=== PATIENT | male | born 1990 | race Hispanic/Latino ===

== ENCOUNTER 2019-03-07 17:45 | Emergency (ER) | payer SELFPAY ==
[2019-03-07] MEDS ORDERED: Colchicine 0.6 MG TAB ONE (18:00)
== END 2019-03-07 18:10 | disposition home or self-care (01) ==
LOC: ERS 17:45
DX: M10.9 Gout, unspecified (principal); E78.00 Pure hypercholesterolemia, unspecified; F17.200 Nicotine dependence, unspecified, uncomplicated
CPT/HCPCS: 99283

== ENCOUNTER 2019-03-18 21:44 | Emergency (ER) | payer SELFPAY ==
[2019-03-18] MEDS ORDERED: Ketorolac Tromethamine 30 MG/ML VIAL ONE (22:04)
== END 2019-03-18 22:23 | disposition home or self-care (01) ==
LOC: ERS 21:44
DX: M10.9 Gout, unspecified (principal); E78.00 Pure hypercholesterolemia, unspecified; F17.200 Nicotine dependence, unspecified, uncomplicated; Z79.899 Other long term (current) drug therapy
CPT/HCPCS: 96372; 99283; J1885

== ENCOUNTER 2019-08-08 13:00 | Emergency (ER) | payer OTHER, SELFPAY ==
[2019-08-10 13:41] LABS: SARS-CoV-2 MS2 Positive; SARS-CoV-2 N Gene Negative; SARS-CoV-2 S Gene Negative; SARS-CoV-2 orf1ab Negative
== END 2019-08-08 13:25 | disposition home or self-care (01) ==
LOC: ERS 13:00
DX: R50.9 Fever, unspecified (principal); Z20.828 Contact with and (suspected) exposure to other viral communicable diseases; F17.200 Nicotine dependence, unspecified, uncomplicated; E78.00 Pure hypercholesterolemia, unspecified; M10.9 Gout, unspecified
CPT/HCPCS: 87635; 99283; U0003

== ENCOUNTER 2020-08-15 10:31 | Emergency (ER) | payer SELFPAY ==
[2020-08-15 19:51] LABS: SARS-CoV-2 PCR by NAA Not Detected (NotDetected)
== END 2020-08-15 11:49 | disposition home or self-care (01) ==
LOC: ERS 10:31
DX: Z20.822 Contact with and (suspected) exposure to COVID-19 (principal); E78.00 Pure hypercholesterolemia, unspecified; F17.200 Nicotine dependence, unspecified, uncomplicated
CPT/HCPCS: 99283; U0003; U0005

== ENCOUNTER 2021-06-24 02:52 | Emergency (ER) | payer SELFPAY ==
[2021-06-24] MEDS ORDERED: Ketorolac Tromethamine 30 MG/ML VIAL ONE (04:03)
== END 2021-06-24 04:28 | disposition home or self-care (01) ==
LOC: ERS 02:52
DX: M10.9 Gout, unspecified (principal); E78.00 Pure hypercholesterolemia, unspecified; F17.200 Nicotine dependence, unspecified, uncomplicated
CPT/HCPCS: 96372; 99283; J1885

== ENCOUNTER 2021-08-22 08:31 | Emergency (ER) | payer SELFPAY ==
[2021-08-22] MEDS ORDERED: Ketorolac Tromethamine 30 MG/ML VIAL ONE (09:07)
== END 2021-08-22 09:37 | disposition home or self-care (01) ==
LOC: ERS 08:31
DX: M10.9 Gout, unspecified (principal); E78.00 Pure hypercholesterolemia, unspecified; F17.210 Nicotine dependence, cigarettes, uncomplicated
CPT/HCPCS: 96372; 99283; J1885

== ENCOUNTER 2021-09-25 13:43 | Outpatient (CLI) | payer OTHER | END 2021-09-25 13:44 | disposition home or self-care (01) | LOC: BICRAD 13:43 | PROVIDERS: ATTEND Family Medicine | DX: M25.561 Pain in right knee (principal); M1A.9XX0 Chronic gout, unspecified, without tophus (tophi); M79.89 Other specified soft tissue disorders ==